=== PATIENT | female | born 1945 | race Caucasian/White ===

== ENCOUNTER 2023-08-21 10:17 | Outpatient (AMB) | payer MEDICARE, OTHER, SELFPAY ==
--- NOTE | 2023-08-21 10:18 | MHC.OFFVIS ---
Intake Vital Signs 08/21/23 10:28 Height 5 ft 2 in Weight 140 lb BMI 25.6 Intake Visit Reasons: [employer]-Right knee pain-Discuss surgery Intake Note: Windy is a a 78 year old female who presents with complaints of intermittent right knee pain. The patient underwent left total knee replacement surgery several years ago. She denies any discomfort in her left knee. She describes her right knee discomfort as achy in nature. She continues to see Dr. Reynoso for right knee injections. The most recent set of injections have given her fairly good relief. She was seen by another orthopedic surgeon who recommended right total knee replacement surgery. She presents here for a 2nd opinion. Allergies No Known Allergies Allergy (Verified 08/21/23 10:32) Medication List - Last Reconciled 08/21/23 by Juan Dumas MD alendronate 70 mg PO QWEEK folic acid 1 mg PO DAILY ipratropium bromide intranasal ketoconazole 2% 1 appl topical methotrexate sodium 10 mg PO QWEEK tretinoin 0.025% appl topical PFSH Surgical History (Updated 08/21/23 @ 10:34 by Elizabeth Jones CMA) Hx of hernia repair (~2016) History of left knee surgery Social History (Updated 08/21/23 @ 10:34 by Elizabeth Jones CMA) Patient Tobacco Use Status: Never used Tobacco Physical Exam Vital Signs: BMI result Body Mass Index 25.6 Const Other: Well-nourished well-developed very friendly female awake alert and oriented x3 in no acute distress Extrem Other: Bilateral lower extremity examination shows good capillary refill, no skin lesions noted, normal sensation light touch Right knee examination shows a minimal effusion, palpable crepitus with range of motion, mild to moderate pain with range of motion, range of motion from -3 degrees to 115 degrees, no instability Results Reviewed Results Reviewed: X-rays of the patient's right knee show moderate to severe joint space narrowing, subchondral sclerosis, no acute bony abnormalities Assessment & Plan Assessment & Plan (1) Arthritis of right knee: Code(s): M17.11 - Unilateral primary osteoarthritis, right knee Plan Ms. Lema presents with right knee pain due to degenerative joint disease. I had a lengthy discussion with the patient regarding the treatment options. At this point the patient appears to be failing continued non operative treatments. The risks and benefits of right total knee replacement surgery were discussed at length with the patient. The patient wishes to think things over. There is certainly no garza for her to proceed with surgery. She will continue seeing Dr. Reynoso for injections as long as they continue giving her relief. She will follow up with me on an as-needed basis. Feel free to contact me at any time should questions regarding her orthopedic management arise. I spent 22 minutes in reviewing the patient's records and imaging studies, seeing the patient and documenting in the medical record. Orders: Orders XR knee RT 3V Today M25.561 - Pain in right knee Coding Level of Care Code Est Pt Level 2 (52194) Diagnoses Arthritis of right knee M17.11
[2023-08-21 10:28] VITALS: BMI 25.6
== END 2023-08-21 11:01 | disposition home or self-care (01) ==
PROVIDERS: Visit Provider Orthopaedic Surgery
DX: M17.11 Unilateral primary osteoarthritis, right knee (principal)
CPT/HCPCS: 99213

== ENCOUNTER 2023-08-21 13:53 | Outpatient (REF) | payer MEDICARE, OTHER, SELFPAY ==
--- NOTE | ~2023-08-21 | XR_ITS ---
EXAMINATION: XR KNEE, RIGHT CLINICAL INFORMATION: Pain. COMPARISON: None available. TECHNIQUE: AP, lateral and sunrise views of the right knee are submitted. FINDINGS: There is bony demineralization. The lateral, medial and patellofemoral joint space compartments are well-maintained. There is tricompartment peripheral osteophyte formation. No fracture, dislocation or significant joint effusion is seen. There is no foreign body. There are mild atherosclerotic calcifications. XR/XR knee RT 3V IMPRESSION: 1. There is mild tricompartment osteoarthritic change of the right knee. 2. No fracture, dislocation or joint effusion is seen.
== END 2023-08-21 13:54 | disposition home or self-care (01) ==
LOC: HO.HOSX 13:53
PROVIDERS: Visit Provider Orthopaedic Surgery
DX: M25.561 Pain in right knee (principal); M17.11 Unilateral primary osteoarthritis, right knee; Z96.652 Presence of left artificial knee joint; Z79.631 Long term (current) use of antimetabolite agent
CPT/HCPCS: 73562; 99212